=== PATIENT | female | born 1990 | race Caucasian/White ===

== ENCOUNTER 2016-06-24 17:08 | Emergency (ER) | payer OTHER ==
[2016-06-24] MEDS ORDERED: OPTIRAY 350 100 ML VIAL HMH IV ONE ×2 (17:09)
== END 2016-06-24 19:59 | disposition home or self-care (01) ==
LOC: FASTR 17:08
CPT/HCPCS: 36415 ×2; 70491 ×2; 80053 ×2; 84439 ×2; 84443 ×2; 84703 ×2; 85025 ×2; 85610 ×2; 85730 ×2; 86403 ×2; 87880 ×2; 99284; Q9967